=== PATIENT | male | born 1965 | race Hispanic/Latino ===

== ENCOUNTER 2025-05-14 08:38 | Outpatient (CLI) | payer BC ==
[2025-05-14 09:13] LABS: Estimated GFR - POC 76.0
== END 2025-05-14 08:39 | disposition home or self-care (01) ==
LOC: SCSMRI 08:38
PROVIDERS: ATTEND Urology
DX: R97.20 Elevated prostate specific antigen [PSA] (principal)
CPT/HCPCS: 36415; 72197; 82565